=== PATIENT | female | born 2000 | race Two or more races ===

== ENCOUNTER 2020-05-11 14:13 | Outpatient (CLI) | payer OTHER ==
[2020-05-11] MEDS ORDERED: PRENATAL CAPLE1 EAC1 PO (14:38)
== END 2020-05-12 17:30 | disposition home or self-care (01) ==
LOC: OBS/DEL 14:13 → EDBD 14:13 → OBS/DEL 14:35
PROVIDERS: ATTEND Obstetrics & Gynecology
DX: O76 Abnormality in fetal heart rate and rhythm complicating labor and delivery (principal)

== ENCOUNTER 2020-05-15 18:41 | Inpatient (IN) | payer OTHER ==
[~2020-05-15] VITALS: Ht 152.4 cm; Wt 104.3 kg
[~2020-05-15 18:41] MED LIST: PRENATAL CAPLE1 EAC1 PO
[2020-05-18] MEDS ORDERED: MAXFE CAPLET1 EACH PO (16:40)
[2020-05-18] MEDS ORDERED: PRENATAL + DHA1 EAC1 PO (16:40)
== END 2020-05-18 16:45 | disposition home or self-care (01) | DRG 807 ==
LOC: LDR 18:41 → OB/GYN 05-16 18:43
PROVIDERS: ADMIT Obstetrics & Gynecology; ATTEND Obstetrics & Gynecology
PROC: 4A0HXFZ Measurement of Products of Conception, Cardiac Rhythm, External Approach (ICD-10-PCS; 2020-05-15)
PROC: 10E0XZZ Delivery of Products of Conception, External Approach (ICD-10-PCS; principal; 2020-05-16)
PROC: 0KQM0ZZ Repair Perineum Muscle, Open Approach (ICD-10-PCS; 2020-05-16)
DX: O70.1 Second degree perineal laceration during delivery (principal); Z37.0 Single live birth; Z3A.39 39 weeks gestation of pregnancy